=== PATIENT | female | born 1960 | race Caucasian/White ===

== ENCOUNTER → 2018-10-15 | Outpatient (CLI) | payer OTHER ==
[2018-10-15 12:13] LABS: ALBUMIN 3.9 gm/dl (3.1-4.5); ALKALINE PHOSPHATASE 81 U/L (45-117); BUN 13 mg/dl (7-24); CHLORIDE 106 mmol/L (98-107); CHOLESTEROL 196 mg/dL (<200); CREATININE 0.79 mg/dL (0.55-1.02); FREE T4 1.24 ng/dl (0.76-1.46); HDL CHOLESTEROL 64 mg/dl (40-60); LDL CHOLESTEROL 119 mg/dL (9-159); POTASSIUM 4.2 mmol/L (3.5-5.1); SGOT/AST 13 IU/L (3-35); SGPT/ALT 20 U/L (12-78); SODIUM 141 mmol/L (136-145); TOTAL PROTEIN 7.4 gm/dL (6.4-8.2); TRIGLYCERIDES 64 mg/dl (<150); VLDL CHOLESTEROL 13 mg/dL (6-40)
[2018-10-15 12:18] LABS: THYROID STIM HORMONE (HS) 0.474 uIU/ml (0.358-4.75)
== END | disposition home or self-care (01) ==
LOC: LAB 11:09
PROVIDERS: Family Medicine
DX: Z00.00 Encounter for general adult medical examination without abnormal findings (principal); E55.9 Vitamin D deficiency, unspecified; Z86.39 Personal history of other endocrine, nutritional and metabolic disease

== ENCOUNTER → 2020-11-07 | Outpatient (CLI) | payer OTHER ==
[2020-11-07 13:45] LABS: ALBUMIN 4.2 gm/dl (3.1-4.5); ALKALINE PHOSPHATASE 71 U/L (45-117); BUN 12 mg/dl (7-24); CHLORIDE 108 mmol/L (98-107); CHOLESTEROL 202 mg/dL (<200); CREATININE 0.74 mg/dL (0.55-1.02); FREE T4 1.25 ng/dl (0.76-1.46); LDL CHOLESTEROL 127 mg/dL (9-159); POTASSIUM 4.5 mmol/L (3.5-5.1); SGOT/AST 13 IU/L (3-35); SGPT/ALT 25 U/L (12-78); SODIUM 142 mmol/L (136-145); TOTAL PROTEIN 7.5 gm/dL (6.4-8.2); TRIGLYCERIDES 85 mg/dl (<150)
[2020-11-07 13:50] LABS: THYROID STIM HORMONE (HS) 0.321 uIU/ml (0.358-4.75)
== END | disposition home or self-care (01) ==
LOC: LAB 12:40
PROVIDERS: ATTEND Family Medicine
DX: E55.9 Vitamin D deficiency, unspecified (principal)

== ENCOUNTER → 2021-01-22 | Outpatient (CLI) | payer OTHER | LOC: WOUNDCARE 01:33 | PROVIDERS: ATTEND Surgery | DX: S80.861A Insect bite (nonvenomous), right lower leg, initial encounter (principal); S81.801A Unspecified open wound, right lower leg, initial encounter; I10 Essential (primary) hypertension; Z79.899 Other long term (current) drug therapy; W57.XXXA Bitten or stung by nonvenomous insect and other nonvenomous arthropods, initial encounter; Y93.89 Activity, other specified; Y92.89 Other specified places as the place of occurrence of the external cause; Y99.8 Other external cause status ==

== ENCOUNTER → 2021-01-29 | Outpatient (CLI) | payer OTHER | LOC: WOUNDCARE 01:33 | PROVIDERS: ATTEND Surgery | DX: S80.861D Insect bite (nonvenomous), right lower leg, subsequent encounter (principal); S81.801D Unspecified open wound, right lower leg, subsequent encounter; I10 Essential (primary) hypertension; Z79.899 Other long term (current) drug therapy; W57.XXXD Bitten or stung by nonvenomous insect and other nonvenomous arthropods, subsequent encounter ==

== ENCOUNTER → 2021-02-04 | Outpatient (CLI) | payer OTHER ==
[2021-02-04 12:53] LABS: THYROXINE (T4) TOTAL 12.5 ug/dl (4.8-13.9)
[2021-02-04 12:58] LABS: THYROID STIM HORMONE (HS) 0.285 uIU/ml (0.358-4.75)
[2021-02-05 08:07] LABS: THYROID PEROXIDASE (TPO) AB 8 IU/mL (0-34)
[2021-02-05 13:07] LABS: THYROGLOBULIN ANTIBODY <1.0 IU/mL (0.0-0.9)
== END | disposition home or self-care (01) ==
LOC: LAB 12:04
PROVIDERS: ATTEND Family Medicine
DX: R94.6 Abnormal results of thyroid function studies (principal)

== ENCOUNTER → 2021-02-05 | Outpatient (CLI) | payer OTHER | LOC: WOUNDCARE 01:50 | PROVIDERS: ATTEND Surgery | DX: S80.861D Insect bite (nonvenomous), right lower leg, subsequent encounter (principal); S81.801D Unspecified open wound, right lower leg, subsequent encounter; I10 Essential (primary) hypertension; Z79.899 Other long term (current) drug therapy; W57.XXXD Bitten or stung by nonvenomous insect and other nonvenomous arthropods, subsequent encounter ==

== ENCOUNTER → 2021-02-08 | Outpatient (CLI) | payer OTHER | END | disposition home or self-care (01) | LOC: US 07:19 | PROVIDERS: ATTEND Family Medicine | DX: E04.1 Nontoxic single thyroid nodule (principal) ==

== ENCOUNTER → 2021-02-12 | Outpatient (CLI) | payer OTHER | LOC: WOUNDCARE 02:45 | PROVIDERS: ATTEND Nurse Practitioner Family | DX: S80.861D Insect bite (nonvenomous), right lower leg, subsequent encounter (principal); S81.801D Unspecified open wound, right lower leg, subsequent encounter; I10 Essential (primary) hypertension; Z79.899 Other long term (current) drug therapy; W57.XXXD Bitten or stung by nonvenomous insect and other nonvenomous arthropods, subsequent encounter ==

== ENCOUNTER → 2021-02-21 | Outpatient (CLI) | payer OTHER | LOC: WOUNDCARE 00:54 | PROVIDERS: ATTEND Nurse Practitioner Family | DX: S80.861D Insect bite (nonvenomous), right lower leg, subsequent encounter (principal); S81.801D Unspecified open wound, right lower leg, subsequent encounter; I10 Essential (primary) hypertension; B35.4 Tinea corporis; Z79.899 Other long term (current) drug therapy; W57.XXXD Bitten or stung by nonvenomous insect and other nonvenomous arthropods, subsequent encounter ==

== ENCOUNTER → 2021-02-27 | Outpatient (CLI) | payer OTHER | LOC: WOUNDCARE 01:00 | PROVIDERS: ATTEND Nurse Practitioner Family | DX: S80.861D Insect bite (nonvenomous), right lower leg, subsequent encounter (principal); S81.801D Unspecified open wound, right lower leg, subsequent encounter; I10 Essential (primary) hypertension; B35.4 Tinea corporis; Z79.899 Other long term (current) drug therapy; W57.XXXD Bitten or stung by nonvenomous insect and other nonvenomous arthropods, subsequent encounter ==

== ENCOUNTER → 2021-03-06 | Outpatient (CLI) | payer OTHER | LOC: WOUNDCARE 00:12 | PROVIDERS: ATTEND Nurse Practitioner Family | DX: S80.861D Insect bite (nonvenomous), right lower leg, subsequent encounter (principal); S81.801D Unspecified open wound, right lower leg, subsequent encounter; I10 Essential (primary) hypertension; B35.4 Tinea corporis; Z79.899 Other long term (current) drug therapy; W57.XXXD Bitten or stung by nonvenomous insect and other nonvenomous arthropods, subsequent encounter ==

== ENCOUNTER → 2021-03-13 | Outpatient (CLI) | payer OTHER | LOC: WOUNDCARE 03:51 | PROVIDERS: ATTEND Nurse Practitioner Family | DX: S80.861D Insect bite (nonvenomous), right lower leg, subsequent encounter (principal); S81.801D Unspecified open wound, right lower leg, subsequent encounter; L30.9 Dermatitis, unspecified; I10 Essential (primary) hypertension; B35.4 Tinea corporis; Z79.899 Other long term (current) drug therapy; W57.XXXD Bitten or stung by nonvenomous insect and other nonvenomous arthropods, subsequent encounter ==

== ENCOUNTER → 2021-03-20 | Outpatient (CLI) | payer OTHER | LOC: WOUNDCARE 01:15 | PROVIDERS: ATTEND Nurse Practitioner Family | DX: S80.861D Insect bite (nonvenomous), right lower leg, subsequent encounter (principal); S81.801D Unspecified open wound, right lower leg, subsequent encounter; L30.9 Dermatitis, unspecified; I10 Essential (primary) hypertension; B35.4 Tinea corporis; Z79.899 Other long term (current) drug therapy; W57.XXXD Bitten or stung by nonvenomous insect and other nonvenomous arthropods, subsequent encounter ==

== ENCOUNTER → 2021-03-27 | Outpatient (CLI) | payer OTHER | LOC: WOUNDCARE 00:47 | PROVIDERS: ATTEND Nurse Practitioner Family | DX: S80.861D Insect bite (nonvenomous), right lower leg, subsequent encounter (principal); S81.801D Unspecified open wound, right lower leg, subsequent encounter; L30.9 Dermatitis, unspecified; I10 Essential (primary) hypertension; Z79.899 Other long term (current) drug therapy; W57.XXXD Bitten or stung by nonvenomous insect and other nonvenomous arthropods, subsequent encounter ==

== ENCOUNTER → 2021-04-04 | Outpatient (CLI) | payer OTHER | LOC: WOUNDCARE 01:26 | PROVIDERS: ATTEND Nurse Practitioner Family | DX: S80.861D Insect bite (nonvenomous), right lower leg, subsequent encounter (principal); S81.801D Unspecified open wound, right lower leg, subsequent encounter; L30.9 Dermatitis, unspecified; Z79.899 Other long term (current) drug therapy; W57.XXXD Bitten or stung by nonvenomous insect and other nonvenomous arthropods, subsequent encounter ==

== ENCOUNTER → 2021-04-09 | Outpatient (CLI) | payer OTHER ==
[2021-04-09 08:59] LABS: FREE T4 1.09 ng/dl (0.76-1.46)
[2021-04-09 09:04] LABS: THYROID STIM HORMONE (HS) 0.466 uIU/ml (0.358-4.75)
[2021-04-11 09:07] LABS: THYROID STIM IMMUNOGLOBULIN <0.10 IU/L (0.00-0.55)
== END | disposition home or self-care (01) ==
LOC: LAB 07:31
PROVIDERS: ATTEND Physician Assistant
DX: E05.90 Thyrotoxicosis, unspecified without thyrotoxic crisis or storm (principal)

== ENCOUNTER → 2021-07-12 | Outpatient (CLI) | payer OTHER ==
[2021-07-12 08:26] LABS: FREE T4 1.05 ng/dl (0.76-1.46)
[2021-07-12 08:31] LABS: THYROID STIM HORMONE (HS) 0.705 uIU/ml (0.358-4.75)
== END | disposition home or self-care (01) ==
LOC: LAB 07:43
PROVIDERS: ATTEND Physician Assistant
DX: E05.90 Thyrotoxicosis, unspecified without thyrotoxic crisis or storm (principal)